=== PATIENT | male | born 1960 | race Caucasian/White ===

== ENCOUNTER → 2017-02-22 | Outpatient (CLI) | payer OTHER ==
[~2017-02-22] MED LIST: ASPIRIN81 M1 PO; ASPIRIN81 M2 PO; CEFEPIME-D2 GM/50 ML IV; DIOVAN320 MG PO; DOCUSATE SODIU100 MG PO; GLUCOSAMINE500 M1 PO; LEVAQUIN750 M1 PO; LIPITOR20 MG PO; LISINOPRIL10 MG PO; LO-DOSE ASPIRIN81 M1 PO; LOVENOX40 MG/0.4 INJ; MELOXICAM15 MG PO; MOBIC PO; MOBIC15 MG PO; MULTI VITAMIN1 EACH PO; NORCO 5/325 TAB1 TAB PO; OXYCONTIN20 MG PO; PERCOCET 51 UDTAB 5/ PO; PERCOCET 7.5/321 TAB PO; ROBAXIN500 MG PO; TOPROL XL50 MG PO; VIBRAMYCIN100 M1 PO; VYTORIN; VYTORIN 10-40 M1 TAB PO; XARELTO10 MG PO
--- NOTE | ~2017-02-22 | EKG ---
PATIENT: MILES AGUILERA UNIT #: [id number] Ventricular Rate: 75 BPM Atrial Rate: 75 BPM P-R Interval: 170 ms QRS Duration: 90 ms Q-T Interval: 402 ms QTC Calculation(Bezet): 448 ms P [place]: 24 degrees Calculated R [place]: -5 degrees Calculated T [place]: 7 degrees Diagnosis Line: Normal sinus rhythm Diagnosis Line: Minimal voltage criteria for LVH, may be normal Diagnosis Line: variant Diagnosis Line: Borderline ECG Diagnosis Line: When compared with ECG of 24-APR-2013 08:50, Diagnosis Line: No significant change was found Diagnosis Line: Confirmed by CELY BELTRAN MD ([id number]) on 02/24/2017 Diagnosis Line: 8:14:52 AM INTERPRETING MD: RUBY KHALIL
[2017-02-22 11:02] LABS: HEMATOCRIT 45.2 % (38.0-50.0); HEMOGLOBIN 15.9 gm/dL (13.0-16.0); MEAN CELL VOLUME 90.9 FL (83-96); MEAN CORPUSCULAR HGB CONC 35.2 g/dL (30-36); MEAN PLATELET VOLUME 8.9 FL (6.5-11.5); RED BLOOD COUNT 4.97 X10e (3.90-5.60); WHITE BLOOD COUNT 7.6 X10e3 (4.0-10.5)
[2017-02-22 11:03] LABS: URINE APPEARANCE CLEAR; URINE BILIRUBIN NEG (NEG); URINE BLOOD NEG (NEG); URINE COLOR YELLOW; URINE GLUCOSE NORM (NORM); URINE KETONE NEG (NEG); URINE LEUKOCYTE ESTERASE NEG (NEG); URINE NITRATE NEG (NEG); URINE PROTEIN NEG (NEG); URINE SOURCE CATH; URINE SPECIFIC GRAVITY 1.005 (1.003-1.035); URINE UROBILINOGEN NORM (NORM)
[2017-02-22 11:04] LABS: CULTURE INDICATED? NO
[2017-02-22 11:28] LABS: BUN/CREATININE RATIO 18.33; CALCIUM SERUM 9.7 mg/dL (8.4-10.2); CREATININE SERUM 1.2 mg/dL (0.6-1.4); GLOM FILT RATE Estimated 66.3 mL/min (>60); POTASSIUM 4.5 mmol/L (3.5-5.1)
== END | disposition home or self-care (01) ==
LOC: CAMB 08:51
PROVIDERS: Orthopaedic Surgery
DX: Z01.818 Encounter for other preprocedural examination (principal); M19.071 Primary osteoarthritis, right ankle and foot
CPT/HCPCS: 36415; 80048; 81003; 85027; 87070; 93005

== ENCOUNTER 2017-02-27 08:36 | Inpatient (IN) | payer OTHER ==
--- NOTE | ~2017-02-27 | DS ---
Unit #: [id number] #: [id number] Patient: MILES AGUILERA [id number] [address] [place], [place] [address] [id number] MR#: [id number] NAME: MILES AGUILERA ROOM: 449 Age: 56 Sex: M Admission Date: 02/27/2017 : 1960 Discharge Date: 03/01/2017 Attending Physician: Steve Escobedo M.D. Primary Care Physician: Generic Doctor Not In System DISCHARGE SUMMARY CHIEF COMPLAINT Right foot pain and deformity. HISTORY OF PRESENT ILLNESS The patient is a 56-year-old male, who has undergone previous left tibiotalocalcaneal fusion, who now presents with right ankle pain and deformity. He has failed conservative care. He is therefore to undergo a right ankle replacement and reconstruction of his varus deformity. HOSPITAL COURSE The patient was taken to the operating room on the date of admission where he underwent right ankle replacement, shortening fibular osteotomy, Brostrom lateral ankle reconstruction, and calcaneal osteotomy. There were no operative complications. He had a stable postoperative course. He remained afebrile with stable vital signs. Pain was controlled with OxyContin and a morphine PEDIATRIC SPEECH THERAPIST. He was seen by physical therapy and instructed on how to remain non-weight bearing on his affected side. Dressing was changed on the first postoperative day. Wounds appeared to be healing well. He is ready for discharge on the second postoperative day. 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 DISPOSITION AND RECOMMENDATIONS 1. The patient is discharged home. Will keep the dressing clean, dry and intact. Will remain non-weight bearing on his affected side for six weeks. 2. Discharge medications remain the same as his home medications with the addition of OxyContin 20 mg p.o. b.i.d. for a total of ten days and Xarelto 10 mg p.o. daily for a total of two weeks. 3. Follow up in my office in 10-14 days for dressing change, suture removal and application of a cast. Dictated by... Hanh Ceballos/dewayne TD: 03/02/2017 10:32 JOB #: [id number] Unit #: [id number] #: [id number] Patient: ALEMILESTRACI VASQUES DISCHARGE SUMMARY Page 1 of 1 X Yadira Escobedo MD X DISCHARGE SUMMARY
--- NOTE | ~2017-02-27 | OR ---
Unit #: [id number] #: [id number] Patient: MILES AGUILERA [id number] [address] [place], [place] [address] [id number] MR#: [id number] NAME: MILES AGUILERA ROOM: [facility] Date of Procedure: 02/27/2017 Admission Date: 02/27/2017 Surgeon: Steve Escobedo M.D. : 1960 Attending Physician: Steve Escobedo M.D. Primary Care Physician: Generic Doctor Not In System OPERATIVE REPORT PREOPERATIVE DIAGNOSES 1. Right ankle degenerative arthritis. 2. Right ankle tibiotalar joint varus. POSTOPERATIVE DIAGNOSES 1. Right ankle degenerative arthritis. 2. Right ankle tibiotalar joint varus. PROCEDURES PERFORMED 1. Right total ankle arthroplasty (48719). 2. Right calcaneal Wolf lateralizing osteotomy (68178). 3. Right distal fibular shortening osteotomy (92127). 4. Right lateral ankle Brostrom ligamentous reconstruction (21535). ASSISTANTS MD Britany and SHY Jensen. ANESTHESIA Popliteal saphenous block and general. IMPLANTS Integra Igor Talaris total ankle arthroplasty size #2 tibia, #2 talus, 8 mm poly. INDICATIONS FOR SURGERY The patient is a 56-year-old male with end-stage right ankle arthritis and 20 degrees of tibiotalar varus. He has failed to respond to conservative care. He is therefore to undergo ankle replacement. Risks and benefits of ankle replacement versus fusion have been discussed. The patient has a contralateral tibiotalocalcaneal fusion and wishes to maintain motion in his right ankle if at all possible. DESCRIPTION OF PROCEDURE The patient underwent right popliteal saphenous block in the anesthesia holding area. He was then taken to the operating room and placed in supine position and general anesthetic was induced. The right ankle was identified as the correct operative extremity during the time-out procedure. The IV antibiotic protocol was followed. The right leg was then prepped and draped in the usual sterile fashion. The leg was exsanguinated and the thigh tourniquet inflated to 300 mmHg. A 12 cm long anterior longitudinal incision was made over the ankle. The Unit #: [id number] #: [id number] Patient: MILES AGUILERA subcutaneous tissue was carefully divided. The superficial peroneal nerve was identified and protected. The extensor retinaculum was opened. The interval between the extensor hallucis longus and anterior tibial tendons was then developed. The neurovascular bundle was retracted laterally. The joint was exposed subperiosteally. The large anterior distal tibial osteophyte was removed with the power osteotome. Because the patient had significant ankle varus with large osteophytes on the lateral gutter, an anterolateral distal fibular incision was made. The subcutaneous tissue was divided. The joint capsule was opened. The large osteophytes overlying the lateral talus and distal fibula were then excised with a rongeur. The Igor Talaris tibial alignment guide was pinned to the tibial tuberosity and to the distal tibia while it was aligned to the tibial shaft. An 8 mm resection was set. Rotation was set. The tibia and talus were both sized at a #2. The #2 cutting block was applied. The three drill holes were placed medially and laterally and the distal tibial cut was made. The anterior half of the distal cut tibial bone was removed in a piecemeal fashion. The talar pin setting guide was then applied and the talar pin was placed in the talar body. Position was checked with C-arm. The posterior talar cutting guide was applied. The four pins were placed and the posterior talar cut was made. The remainder of the cut bone of the posterior distal tibia was removed in a piecemeal fashion. The anterior talar cutting guide was pinned into place and the anterior talar neck was milled. The lateral talar cutting guide was pinned into place and the Wright saw was used and the lateral talar cut was made. The joint was lavaged. Care was taken to ensure that all osteophytes in the medial and lateral gutters were completely excised. The trial fit appropriately for both the tibia and the talus; however, the ankle was still very tight medially, therefore the deep deltoid ligament was released and the superficial deltoid ligament was released with a Russell elevator releasing the attachment from the distal medial malleolus all the way to the posterior tibial tendon. The final #2 talar component was then impacted into place. An 8 mm poly was then fixed to the #2 tibial component and this was impacted into place. There was excellent alignment of the components; although, the ankle still wanted to sit in varus. It was hard to reduce the talus to the under surface of the tibial component laterally. Therefore, a shortening osteotomy of the fibula was required. The distal fibula was exposed subperiosteally. The baby Hohmann retractors were placed. The microsagittal saw was then used to resect a 5 mm segment of bone from the distal fibula just distal to the joint line. The segment of bone was removed and the osteotomy was closed. The osteotomy was fixated with a DePuy 6.5 mm diameter cannulated screw placed from distal to proximal. Excellent fixation was achieved and this helped hold the ankle in much improved position. An Arthrex 5.5 mm diameter Corkscrew suture anchor was placed in the distal fibula. The two attached #2 FiberWire sutures were then used to imbricate and advance the lateral ankle ligaments proximally and laterally. The ligaments were then oversewn with multiple #2 FiberWire [id number] sutures. This eliminated the talar tilt; although, the heel still was in mild varus. At this point, we decided to proceed with calcaneal osteotomy. Unit #: [id number] #: [id number] Patient: MILES AGUILERA A 6 cm lateral oblique incision was made over the calcaneal body just posterior to the peroneal tendons at a 45 degree angle to the plantar aspect of the foot. The lateral talar body was exposed subperiosteally. Baby Hohmann retractors were placed. The microsagittal saw was then used to make two cuts fashioning a 5 mm wide lateral closing wedge osteotomy of the calcaneus. The wedge of bone was removed and the osteotomy was closed. The osteotomy was fixated with two DePuy 4.0 mm diameter cannulated screws placed from distal to proximal. Excellent fixation was achieved and the heel rested now in about 2 degrees of valgus. Ankle dorsiflexion achieved 5 degrees. Plantar flexion was normal. Talar tilt was eliminated. An intraoperative C-arm fluoroscopy documented satisfactory component position and joint position. A 3-minute dilute Betadine wash was then applied to the ankle. This was then lavaged with normal saline. Tourniquet was released with a total tourniquet time of 2 hours 15 minutes. The distal tibial keel was bone grafted with bone taken from the distal tibia. The ankle joint capsule was closed meticulously with 2-0 Vicryl [id number] sutures. The extensor retinaculum was closed with 2-0 Vicryl [id number]-[id number] sutures. Subcutaneous tissue was closed with 3-0 Vicryl and the skin was closed with 3-0 nylon horizontal mattress sutures. Xeroform gauze, dressing, sponges, Webril, and a posterior fiberglass splint were applied. The patient was then transported to the recovery room in stable condition. ESTIMATED BLOOD LOSS Minimal. COMPLICATIONS None. SPECIMENS None. TOURNIQUET TIME Zero. Dictated by.Hanh Mcdaniels/reema TD: 02/27/2017 17:20 JOB #: [id number] OPERATIVE REPORT Page 1 of 1 X Yadira Escobedo MD X PROCEDURE OPERATIVE NOTE
--- NOTE | ~2017-02-27 | HP ---
Unit #: [id number] #: [id number] Patient: MILES AGUILERA [id number] [address] [place], [place] [address] [id number] O MR#: [id number] NAME: MILES AGUILERA ROOM: Age: Sex: M Admission Date: 02/27/2017 : 1960 Attending Physician: Steve Escobedo M.D. Primary Care Physician: Generic Doctor Not In System HISTORY AND PHYSICAL CHIEF COMPLAINT Right ankle pain. HISTORY OF PRESENT ILLNESS The patient is a 56-year-old male who has undergone a previous left tibiotalocalcaneal fusion for avascular necrosis, who now presents with significant right ankle pain and varus deformity. He does have a history of mild neuropathy which is nondiabetic related but he has normal sensation and normal motor function. Due to the presence of a contralateral tibiotalocalcaneal fusion, the patient is deemed appropriate to undergo right ankle replacement. Risks and benefits of this procedure have been discussed in detail with the patient. He elects to proceed. PAST MEDICAL HISTORY Past medical history is remarkable for mild peripheral neuropathy, hypertension. HOME MEDICATIONS Aspirin, Diovan, Lipitor, Mobic, multivitamin, Toprol. ALLERGIES Sulfa. PAST SURGICAL HISTORY Left ankle fusion and left tibiotalocalcaneal fusion. SOCIAL HISTORY The patient is a social drinker. He denies alcohol use. FAMILY HISTORY COPD, arthritis, hypertension, hypercholesterolemia. REVIEW OF SYSTEMS Otherwise unremarkable. PHYSICAL EXAMINATION GENERAL: In general this is a well-developed well-nourished male in no acute distress. HEENT: The pharynx is clear. NECK: The neck is supple, without masses. HEART: Exam reveals a regular sinus rhythm without murmurs or gallops. LUNGS: The lungs are clear. ABDOMEN: The abdomen is soft and nontender, without masses or Unit #: [id number] #: [id number] Patient: MILES AGUILERA organomegaly. EXTREMITIES: Evaluation of the right ankle shows a normal arch with 20 degrees of hindfoot varus. Right ankle dorsiflexion 0 degrees, plantar flexion 40 degrees. Subtalar motion is normal. Sensation is normal. Pulses are normal. Motor exam shows 5+/5 strength testing ankle plantar flexion, dorsiflexion, inversion and eversion DIAGNOSTIC STUDIES IMAGING: Standing x-rays of the right ankle show 20 degrees of uncontained tibiotalar varus with end-stage arthritis of the medial tibiotalar joint. ADMITTING DIAGNOSIS Symptomatic right ankle arthritis with marked tibiotalar varus. PLAN The patient is therefore admitted for right total ankle arthroplasty using the Igor Talaris implant and a Brostrom procedure. He may require lateralizing calcaneal osteotomy if we cannot completely alleviate his deformity. This procedure was described along with risks of bleeding, infection, nerve damage, need for further surgery in the future, prolonged recovery time, deep venous thrombosis, pulmonary embolism, anesthetic complications, loosening of the prosthesis, infection of the prosthesis, need for multiple revisions to include fusion. He understands the above risks and agrees to proceed. Dictated by Hanh Ceballos/camila TD: 02/26/2017 19:04 JOB #: [id number] HISTORY AND PHYSICAL Page 1 of 1 X Yadira Escobedo MD X HISTORY AND PHYSICAL
[~2017-02-27 08:36] MED LIST changes: -DOCUSATE SODIU100 MG PO; -OXYCONTIN20 MG PO; -XARELTO10 MG PO
[2017-03-01] MEDS ORDERED: OXYCONTIN20 MG PO (10:14)
[2017-03-01] MEDS ORDERED: XARELTO10 MG PO (10:19)
[2017-03-01] MEDS ORDERED: DOCUSATE SODIU100 MG PO (10:21)
== END 2017-03-01 10:58 | disposition home or self-care (01) | DRG 470 ==
LOC: CSUR 08:36 → CPACUOF 15:49 → C4B 16:15 → CPACUOF 16:15 → C4B 17:05
PROVIDERS: Orthopaedic Surgery
PROC: 0MQQ0ZZ Repair Right Ankle Bursa and Ligament, Open Approach (ICD-10-PCS; 2017-02-27)
PROC: 0SRF0JZ Replacement of Right Ankle Joint with Synthetic Substitute, Open Approach (ICD-10-PCS; principal; 2017-02-27 11:30)
PROC: 0QHG04Z Insertion of Internal Fixation Device into Right Tibia, Open Approach (ICD-10-PCS; 2017-02-27 11:30)
DX: M19.071 Primary osteoarthritis, right ankle and foot (principal); G62.9 Polyneuropathy, unspecified; I10 Essential (primary) hypertension; Z79.82 Long term (current) use of aspirin; Z88.2 Allergy status to sulfonamides; Z82.49 Family history of ischemic heart disease and other diseases of the circulatory system; M21.171 Varus deformity, not elsewhere classified, right ankle
CPT/HCPCS: 94010; 94760; 97161; C1713; C1776; G8978-GP; G8979-GP; G8980-GP; J0690; J1885; J2250; J2270; J2405; J2795; J3010; J3370